=== PATIENT | male | born 1990 | race Caucasian/White ===

== ENCOUNTER 2018-03-24 20:59 | Emergency (ER) | payer BC, MEDICAID ==
[~2018-03-24] VITALS: Ht 193 cm; Wt 156.8 kg
[~2018-03-24 20:59] MED LIST: OXYC-302 PO; OXYC-432 PO
--- NOTE | 2018-03-24 21:07 | NUR ---
PT AMBULATED TO ROOM WITH STEADY GAIT FROM TRIAGE.
[2018-03-24] MEDS ORDERED: ACETAMINOPHEN 500 MG TABLET ONE (21:27)
[2018-03-24] MEDS ORDERED: FAMOTIDINE 20 MG TABLET ONE (21:27)
[2018-03-24] MEDS ORDERED: ONDANSETRON ODT 4 MG ONE (21:27)
[2018-03-24] MEDS ORDERED: OPIUM/BELLADONNA SUPP.RECT 16.2-30 MG PR ONE (21:30)
[2018-03-24] MEDS ORDERED: ACETAMINOPHEN 500 MG TABLET PO ONE (21:30)
[2018-03-24] MEDS ORDERED: FAMOTIDINE 20 MG TABLET PO ONE (21:30)
[2018-03-24] MEDS ORDERED: ONDANSETRON ODT 4 MG PO ONE (21:30)
[2018-03-24 21:39] LABS: BASOPHILS # (AUTO) 0.02 x10^3/uL (0-0.1); BASOPHILS % (AUTO) 0 % (0-1); EOSINOPHILS # (AUTO) 0.17 x10^3/uL (0-0.4); EOSINOPHILS % (AUTO) 2 % (1-7); LYMPHOCYTES # (AUTO) 1.06 x10^3/uL (1-3.4); LYMPHOCYTES % (AUTO) 11 % (22-44); MD NO; MEAN CORPUSCULAR HEMOGLOBIN 31.6 pg (27.5-34.5); MEAN CORPUSCULAR HGB CONC 34.2 g/dL (33.2-36.2); MEAN CORPUSCULAR VOLUME 92.6 fL (81-97); MEAN PLATELET VOLUME 8.9 fL (7.4-10.4); MONOCYTES # (AUTO) 0.41 x10^3/uL (0.2-0.8); MONOCYTES % (AUTO) 4 % (2-9); NEUTROPHILS % (AUTO) 82 % (42-75); PLATELET COUNT 218 x10^3/uL (130-400); RED BLOOD COUNT 4.59 x10^6/uL (4.38-5.82)
--- NOTE | 2018-03-24 21:40 | NUR ---
PT REPORTS HAVING LOW ABD CRAMPING, PAIN 10/10. PT STATES DIARRHEA FOR YEARS, NOT NEW. PT REPORTS LOW ABD CRAMPING STARTED MONTHS AGO WHEN PT HAD A EPISODE OF "FOOD POISONING, I THINK THATS WHAT STARTED THIS." PT DENIES BEING SEEN FOR THE CRAMPING. PT REPORTS NAUSEA. PT STATES CRAMPING IS INTERMITTENT, "ABOUT EVERY 20 MINUTES." PT A/OX4, BREATHING E/U. PT APPEARS TO BE IN PAIN. PROVIDER TO BEDSIDE FOR PT EVAL COMPLETE. PT TO HAVE BLOOD DRAW, EKG, MEDS, URINE.
--- NOTE | 2018-03-24 21:45 | NUR ---
PT RECIEVED MEDS PER ORDERS, SEE EMAR. SUPP TO GET FROM PHARMACY. PT TO IMAGING VIA [employer].
--- NOTE | 2018-03-24 21:46 | NUR ---
PT IN ROOM WITH URINAL FOR URINE COLLECTION, PT TO HAVE SUPP AFTER.
[2018-03-24 21:47] LABS: ALANINE AMINOTRANSFERASE 42 U/L (12-78); ALBUMIN 3.6 g/dL (3.4-5.0); ANION GAP 6 mmol/L (5-15); CALCIUM 8.4 mg/dL (8.5-10.1); CHLORIDE 110 mmol/L (98-107); CREATININE 0.92 mg/dL (0.7-1.3)
[2018-03-24 21:50] LABS: ALKALINE PHOSPHATASE 75 U/L (45-117); BILIRUBIN,TOTAL 0.4 mg/dL (0.2-1.0); TOTAL PROTEIN 7.1 g/dL (6.4-8.2)
--- NOTE | 2018-03-24 21:56 | NUR ---
URINE SENT TO LAB. PT REFUSED SUPPOSITORY, PT STATES HIS HEMORRHOIDS ARE TOO PAINFUL, "JUST HAVING HIM LOOK WAS TOO PAINFUL." PT STATES HE DOES NOT WANT TO TRY THE SUPPOSITORY R/T THE PAIN. MD ANN NOTIFIED. TO SPEAK WITH PT.
[2018-03-24 22:01] LABS: MICROSCOPIC NOT IND
[2018-03-24 22:03] LABS: CULTURE INDICATED? NO
--- NOTE | 2018-03-24 22:04 | NUR ---
MD ANN TO BEDSIDE FOR PT UPDATE.
--- NOTE | 2018-03-24 22:23 | NUR ---
PT TO HAVE PAIN MEDS. STARCOS HELD R/T TYLENOL 1000MG GIVEN ALREADY. WILL NOTIFY MD AND GET NEW ORDERS.
--- NOTE | 2018-03-24 22:27 | NUR ---
NOTIFIED. AWAITING NEW ORDERS.
[2018-03-24] MEDS ORDERED: HYDROcodone/APAP 5/325 TABLET PO ONE (22:30)
[2018-03-24] MEDS ORDERED: OXYcodone IR 5MG TABLET PO ONE (22:30)
[2018-03-24] MEDS ORDERED: OXYcodone IR 5MG TABLET ONE (22:33)
--- NOTE | 2018-03-24 22:38 | NUR ---
PT RECIEVED OXY PER ORDERS, SEE EMAR. PT REPORTS IF PAIN REDUCED WITH OXY THEN HE WILL TRY SUPP, PLAN OF CARE PER MD. PT SITTING IN BED, WILL MONITOR FOR PAIN RELIEF. PT DENIES NEEDS, BREATHING E/U, PT ON HIS PHONE.
--- NOTE | 2018-03-24 22:41 | NUR ---
PT GIVEN CUP OF WATER FOR PO CHALLENGE. WILL MONITOR.
--- NOTE | 2018-03-24 23:11 | NUR ---
PT REPORTS PAIN HAS IMPROVED AND IS READY TO TRY THE SUPPOSITORY.
--- NOTE | 2018-03-24 23:24 | NUR ---
PT RECIEVED SUPPOSITORY, PT REPORTS IMPROVED PAIN 7/10 AT THIS TIME WITH OXY. WILL MONITOR FOR SUPP EFFECTIVENESS. VSS. CALL LIGHT IN REACH.
[2018-03-24 23:47] VITALS: BP 126/67
--- NOTE | 2018-03-24 23:47 | NUR ---
PT REPORTS CONTINUED IMPROVED PAIN, 5/10 AT THIS TIME. MD TO BEDSIDE FOR PT UPDATE.
== END 2018-03-25 00:08 | disposition home or self-care (01) ==
LOC: ED 22:42
DX: K64.5 Perianal venous thrombosis (principal); R30.1 Vesical tenesmus; R10.30 Lower abdominal pain, unspecified
CPT/HCPCS: 36415; 74018; 80053; 81003; 83690; 85025; 93005; 99284; Q0162

== ENCOUNTER 2019-05-09 16:25 | Emergency (ER) | payer BC, MEDICAID, OTHER ==
[~2019-05-09] VITALS: Ht 193 cm; Wt 145.0 kg
[2019-05-09 16:54] VITALS: BP 137/81
[2019-05-09] MEDS ORDERED: KETOROLAC 30 MG/1 ML ONE (17:11)
[2019-05-09] MEDS ORDERED: KETOROLAC 30 MG/1 ML IM ONE (17:30)
[2019-05-09] MEDS ORDERED: HYDROcodone/APAP 5/325 TABLET PO ONE (18:00)
[2019-05-09] MEDS ORDERED: HYDROcodone/APAP 5/325 TABLET ONE (18:14)
== END 2019-05-09 18:36 | disposition home or self-care (01) ==
LOC: ED 17:37
DX: G89.11 Acute pain due to trauma (principal); G89.29 Other chronic pain; M25.562 Pain in left knee; M25.571 Pain in right ankle and joints of right foot; X58.XXXA Exposure to other specified factors, initial encounter; Y93.89 Activity, other specified; Y92.89 Other specified places as the place of occurrence of the external cause; Y99.8 Other external cause status
CPT/HCPCS: 29505; 73564; 96372; 99283; J1885

== ENCOUNTER 2019-10-02 01:02 | Emergency (ER) | payer MEDICAID ==
[~2019-10-02] VITALS: Ht 200.7 cm; Wt 140.3 kg
[2019-10-02] MEDS ORDERED: SODIUM CHLORIDE 0.9% 1,000ML IV ONE (01:30)
[2019-10-02] MEDS ORDERED: SODIUM CHLORIDE FLUSH 10ML SYR IVF ONE (01:30)
[2019-10-02] MEDS ORDERED: KETOROLAC 30 MG/1 ML IVPush ONE (01:30)
[2019-10-02] MEDS ORDERED: HYDROmorphone 1 MG/ML, 1ML INJ ONE ×3 (01:46→03:52)
[2019-10-02] MEDS ORDERED: KETOROLAC 30 MG/1 ML ONE (01:46)
[2019-10-02 01:51] LABS: MICROSCOPIC NOT IND
[2019-10-02 01:51] LABS: EOSINOPHILS # (AUTO) 0.19 x10^3/uL (0-0.4); EOSINOPHILS % (AUTO) 3 % (1-7); MD NO; MEAN CORPUSCULAR VOLUME 93.8 fL (81-97); MEAN PLATELET VOLUME 9.3 fL (7.4-10.4); MONOCYTES # (AUTO) 0.47 x10^3/uL (0.2-0.8)
[2019-10-02] MEDS: HYDROmorphone 2 MG/ML, 1ML IVPush PRN ×2 (01:51→02:21)
[2019-10-02 01:55] LABS: BASOPHILS # (AUTO) 0.05 x10^3/uL (0-0.1); BASOPHILS % (AUTO) 1 % (0-1); LYMPHOCYTES # (AUTO) 2.14 x10^3/uL (1-3.4); LYMPHOCYTES % (AUTO) 29 % (22-44); MEAN CORPUSCULAR HEMOGLOBIN 32.1 pg (27.5-34.5); MEAN CORPUSCULAR HGB CONC 34.3 g/dL (33.2-36.2); MONOCYTES % (AUTO) 6 % (2-9); NEUTROPHILS # (AUTO) 4.53 x10^3/uL (1.8-6.8); NEUTROPHILS % (AUTO) 61 % (42-75); PLATELET COUNT 226 x10^3/uL (130-400); RED BLOOD COUNT 4.62 x10^6/uL (4.38-5.82)
--- NOTE | 2019-10-02 02:00 | NUR ---
REPORT RECEIVED FROM ASHLYN JEAN BAPTISTE. ASSUMED CARE OF PT.
[2019-10-02 02:02] LABS: ALANINE AMINOTRANSFERASE 36 U/L (12-78); ALBUMIN 3.3 g/dL (3.4-5.0); ANION GAP 8 mmol/L (5-15); CALCIUM 8.5 mg/dL (8.5-10.1); CHLORIDE 110 mmol/L (98-107); CREATININE 0.92 mg/dL (0.7-1.3)
[2019-10-02 02:04] LABS: ALKALINE PHOSPHATASE 71 U/L (45-117); BILIRUBIN,TOTAL 0.5 mg/dL (0.2-1.0); TOTAL PROTEIN 7.2 g/dL (6.4-8.2)
--- NOTE | 2019-10-02 02:27 | NUR ---
PT REMEDICATED FOR PAIN, STATES HIS PAIN IS RETURNING AND IS BACK TO AN 8/10. ALL VITALS REMAIN STABLE. AWAITING CT READ AT THIS TIME. PT DENIES ANY OTHER NEEDS, CALL LIGHT WITHIN REACH. WILL CONTINUE TO MONITOR.
--- NOTE | 2019-10-02 02:51 | NUR ---
PT RESTING ON GURNEY COMFORTABLY WITH EYES CLOSED. SLEEPING. RESPIRATIONS EVEN AND UNLABORED. ALL VITALS STABLE. CT RESULTED, CHART UP FOR RECHECK
[2019-10-02 02:52] VITALS: BP 142/86
[2019-10-02] MEDS ORDERED: HYDROmorphone 2 MG/ML, 1ML IVPush STA (03:24)
--- NOTE | 2019-10-02 03:39 | NUR ---
DR. HERNANDEZ AT BEDSIDE UPDATING PT ON POC
--- NOTE | 2019-10-02 04:08 | NUR ---
Patient/Caregiver given discharge instructions and they have confirmed that they understand the instructions. Patient ambulatory with steady gait. PT WITH HIM AND WILL DRIVE HIM HOME
== END 2019-10-02 04:10 | disposition home or self-care (01) ==
LOC: ED 02:23
DX: N20.1 Calculus of ureter (principal); R10.9 Unspecified abdominal pain; R11.0 Nausea; E86.0 Dehydration
CPT/HCPCS: 36415; 74176; 80053; 81003; 85025; 96361; 96374; 96375; 96376; 99284; J1170; J1885; J7030